=== PATIENT | male | born 1960 | race Caucasian/White ===

== ENCOUNTER 2018-04-10 13:30 | Outpatient (CLI) | payer BC ==
--- NOTE | 2018-04-10 17:21 | MRI ---
MRI PELVIS WITH AND WITHOUT IV CONTRAST: Date; 04/10/18 HISTORY: 58-year-old male with elevated PSA. PSA was 9 on 02/25/18. Patient had a negative biopsy 2 years ago. TECHNIQUE: Multiplanar, multisequence MRI of the pelvis was performed using the prostate protocol. Review was al so performed on an independent 3D workstation. FINDINGS: The prostate measures 5.7 x 4.8 x 5.8 cm with a volume of 76.24 mL. No focal abnormal area of restric toby diffusion is seen in the peripheral zone to suggest a malignant process. There is organized chaos consistent with BPH within the transitional zone. No lentiform area of abnormally decreased T2 signa l is noted to suggest a malignant process within the transitional zone. No focal areas of arterial en hancing masses are seen. No suspicious focal areas of arterially enhancing masses are seen. The prost ate capsule is intact. The seminal vesicles are normal. No lymphadenopathy is seen. Pelvic side wall is normal. No abnormal areas of signal replacement on the T1-weighted sequences of the pelvic bones a re seen to suggest osseous metastatic disease. There is sigmoid diverticulosis. IMPRESSION: PI-RADS 2: Low (clinically significant prostate cancer is unlikely to be present). This exam was interpreted in consultation with Dr. Karthik Leroy and Dr. Brian Tovar, who concur. POS: [facility]
== END 2018-04-10 13:31 | disposition home or self-care (01) ==
LOC: TBSIIMAG 13:30
PROVIDERS: ATTEND Urology
DX: R97.20 Elevated prostate specific antigen [PSA] (principal)
CPT/HCPCS: 72197

== ENCOUNTER 2020-12-21 12:22 | Outpatient (CLI) | payer BC | END 2020-12-21 12:23 | disposition home or self-care (01) | LOC: BICRAD 12:22 | PROVIDERS: ATTEND Urology | DX: R97.20 Elevated prostate specific antigen [PSA] (principal) | CPT/HCPCS: 71046 ==

== ENCOUNTER 2021-02-04 06:17 | Day surgery (SDC) | payer BC ==
[2021-02-03 11:31] VITALS: BMI 22.3
[2021-02-04] MEDS ORDERED: ceFAZolin 2 GM/Dextrose 50 ML IVPB ONE (06:42)
[2021-02-04] MEDS ORDERED: Fentanyl 100 MCG/2 ML VIAL ONE (06:43)
[2021-02-04] MEDS ORDERED: Levofloxacin 500 mg/D5W 100 ml Premix Bag ONE (06:43)
[2021-02-04] MEDS ORDERED: Midazolam HCl 2 mg/2 ml Vial ONE (07:27)
[2021-02-04] MEDS ORDERED: PHENYLEPHRINE-NS 100 MCG/ML 10 ML SYRINGE ONE (07:54)
[2021-02-04] MEDS ORDERED: Ondansetron PF 4 MG/2 ML Vial ONE (07:54)
[2021-02-04] MEDS ORDERED: PROPOFOL 200 MG/20 ML VIAL ONE (07:54)
[2021-02-04] MEDS ORDERED: Dexamethasone 20 MG/5 ML VIAL ONE (07:54)
[2021-02-04] MEDS ORDERED: Lidocaine 1% PF 5 ML VIAL ONE (07:54)
[2021-02-04] MEDS ORDERED: Promethazine HCl 25 MG/ML VIAL IM PRN (08:20)
[2021-02-04] MEDS ORDERED: Meperidine HCl/PF 25 MG/ML VIAL SLOW IVP PRN (08:20)
[2021-02-04] MEDS ORDERED: Ondansetron HCl/PF 4 MG/2 ML Vial IVP PRN (08:20)
[2021-02-04] MEDS ORDERED: Promethazine HCl 25 MG/ML VIAL IVPB PRN (08:20)
== END 2021-02-04 17:30 | disposition home or self-care (01) ==
LOC: SDC 06:17
PROVIDERS: ATTEND Urology
PROC: 0VT08ZZ Resection of Prostate, Via Natural or Artificial Opening Endoscopic (ICD-10-PCS; principal; 2021-02-04)
DX: N40.1 Benign prostatic hyperplasia with lower urinary tract symptoms (principal); N13.8 Other obstructive and reflux uropathy; Z79.899 Other long term (current) drug therapy; Z88.8 Allergy status to other drugs, medicaments and biological substances
CPT/HCPCS: 88305; J0690; J1100; J1956; J2250; J2405; J2704; J3010